=== PATIENT | female | born 1990 | race African-American/Black ===

== ENCOUNTER 2016-10-09 22:53 | Emergency (ER) | payer OTHER ==
[~2016-10-09] VITALS: Ht 167.6 cm; Wt 90.0 kg
[~2016-10-09 22:53] MED LIST: CELEXA20 MG PO; CLONAZEPAM0.5 MG PO; DEPO-PROVER150 MG/ML IM; ENDOCET 5-3251 EACH PO; FLINTSTONES +1 EACH PO; IBUPROFEN800 MG PO; KLONOPIN0.5 M1 PO; Motrin PO; NOHOMEMEDS; PRENATE CHEWABLE1 MG PO; VICODIN 5-3001 EACH PO; ZOLOFT50 M1 PO; ZYRTEC10 M2 PO
[2016-10-09] MEDS ORDERED: MOTRIN800 MG PO (23:38)
[2016-10-09] MEDS ORDERED: VALIUM5 MG PO (23:38)
[2016-10-09] MEDS ORDERED: NORCO 7.5/321 TABLET PO (23:38)
[2016-10-09 23:52] VITALS: BP 127/87
== END 2016-10-09 23:52 | disposition home or self-care (01) ==
LOC: RME 22:53 → EME 22:53 → RME 23:52
DX: S39.012A Strain of muscle, fascia and tendon of lower back, initial encounter (principal); X50.9XXA Other and unspecified overexertion or strenuous movements or postures, initial encounter; Y93.89 Activity, other specified; Z87.891 Personal history of nicotine dependence
CPT/HCPCS: 99281; 99284

== ENCOUNTER 2017-01-03 16:04 | Emergency (ER) | payer OTHER ==
[~2017-01-03] VITALS: Ht 167.6 cm; Wt 83.8 kg
[~2017-01-03 16:04] MED LIST changes: +MOTRIN800 MG PO; +NORCO 7.5/321 TABLET PO; +VALIUM5 MG PO
[2017-01-03] MEDS ORDERED: ESCITALOPRAM OX20 MG PO (16:39)
[2017-01-03] MEDS ORDERED: PHENTERMINE HCL30 MG PO (16:39)
[2017-01-03] MEDS ORDERED: ZOFRAN ODT4 MG PO (16:49)
[2017-01-03] MEDS ORDERED: FLEXERIL10 MG PO (16:49)
[2017-01-03] MEDS ORDERED: ULTRAM50 MG PO (16:49)
[2017-01-03 17:03] VITALS: BP 110/77
== END 2017-01-03 17:04 | disposition home or self-care (01) ==
LOC: EME 16:04
DX: F07.81 Postconcussional syndrome (principal); W10.9XXA Fall (on) (from) unspecified stairs and steps, initial encounter; Z87.891 Personal history of nicotine dependence
CPT/HCPCS: 99281; 99284